=== PATIENT | female | born 1990 | race Hispanic/Latino ===

== ENCOUNTER 2022-05-02 08:12 | Emergency (ER) | payer BC, OTHER ==
[~2022-05-02] VITALS: Ht 157.5 cm; Wt 72.6 kg
[2022-05-02] MEDS ORDERED: IBUPROFEN 600 MG TAB PO STA (08:26)
[2022-05-02] MEDS ORDERED: TETANUS/DIPHTHERIA TOX ADULT 0.5 ML SYR IM ONE (08:30)
[2022-05-02] MEDS ORDERED: TRAMADOL HCL 50 MG TAB PO ONE (08:30)
[2022-05-02] MEDS ORDERED: IBUPROFEN 600 MG TAB ONE (08:46)
[2022-05-02] MEDS ORDERED: TRAMADOL HCL 50 MG TAB ONE (08:46)
[2022-05-02] MEDS ORDERED: NAPROXEN250 MG PO (09:33)
== END 2022-05-02 09:45 | disposition home or self-care (01) ==
LOC: ER 08:30
DX: S93.492A Sprain of other ligament of left ankle, initial encounter (principal); S93.491A Sprain of other ligament of right ankle, initial encounter; S60.811A Abrasion of right wrist, initial encounter; S20.312A Abrasion of left front wall of thorax, initial encounter; V43.52XA Car driver injured in collision with other type car in traffic accident, initial encounter; Y92.488 Other paved roadways as the place of occurrence of the external cause
CPT/HCPCS: 71045; 90471; 90714; 99283

== ENCOUNTER 2023-07-14 01:16 | Emergency (ER) | payer BC ==
[~2023-07-14] VITALS: Ht 157.5 cm; Wt 72.6 kg
[~2023-07-14 01:16] MED LIST: NAPROXEN250 MG PO
[2023-07-14 01:27] VITALS: O2SAT 100
[2023-07-14 01:51] LABS: BASOPHILS # (AUTO) 0.1 (0.0-0.1); BASOPHILS % 0.3 % (0.0-1.0); EOSINOPHILS # (AUTO) 0.2 (0.0-0.4); HEMATOCRIT 36.5 % (34.2-44.1); HEMOGLOBIN 12.8 g/dL (12.0-16.0); LYMPHOCYTES # (AUTO) 4.2 (1.0-3.2); MEAN CORPUSCULAR HEMOGLOBIN 29.7 pg (28-32); MEAN CORPUSCULAR HGB CONC 35.1 g/dL (31-35); MEAN CORPUSCULAR VOLUME 84.7 fL (81-99); MONOCYTES # (AUTO) 1.1 (0.2-0.8); NEUTROPHILS # (AUTO) 9.9 (2.1-6.9); NEUTROPHILS % 64.3 % (38.7-80.0); PLATELET COUNT 235 x10e3/uL (140-360); RED BLOOD COUNT 4.31 x10e6/uL (3.6-5.1); RED CELL DISTRIBUTION WIDTH 11.9 % (11.7-14.4); WHITE BLOOD COUNT 15.46 x10e3/uL (4.8-10.8)
[2023-07-14 02:05] LABS: ALBUMIN 4.1 g/dL (3.5-5.0); ALBUMIN/GLOBULIN RATIO 1.4 (0.8-2.0); ANION GAP 13.4 mmol/L (8-16); CALCIUM 9.1 mg/dL (8.4-10.2); CREATININE, SERUM 0.83 mg/dL (0.57-1.11); POTASSIUM 3.4 mmol/L (3.5-5.1)
[2023-07-14] MEDS ORDERED: ONDANSETRON HCL INJ 2MG/ML 2ML 2 MG/ML VIAL IV STA (02:57)
[2023-07-14] MEDS ORDERED: Morphine 4mg INJECTION 4 MG/ML INJ IV STA (02:57)
[2023-07-14] MEDS ORDERED: FLEET ENEMA133 ML PR (03:32)
== END 2023-07-14 03:40 | disposition home or self-care (01) ==
LOC: ER 01:20
DX: K62.89 Other specified diseases of anus and rectum (principal); K56.41 Fecal impaction; R11.0 Nausea; R10.9 Unspecified abdominal pain; E03.9 Hypothyroidism, unspecified; F41.9 Anxiety disorder, unspecified
CPT/HCPCS: 36415; 74176; 80053; 83690; 84702; 85025; 99284; J2270; J2405